=== PATIENT | female | born 1965 ===

== ENCOUNTER 2017-02-11 20:14 | Emergency (ER) | payer BC ==
[2017-02-11 22:39] VITALS: BP 138/81
[2017-02-11] MEDS ORDERED: Tetan/Diph/Pertus SYR(Tdap)* 0.5 ML SYR(BOOSTRIX) use SYR IM ONE (22:41)
[2017-02-11] MEDS ORDERED: Lidocaine 1% INJ* 10 MG/ML 30 ML SDV INJ ONE (22:47)
[2017-02-11] MEDS ORDERED: Lidocaine 1%* 5 ML VIAL ONE (22:49)
--- NOTE | 2017-02-11 23:26 | ED ---
Laceration/Wound HPI - HPI Summary HPI Summary: Cut left index finger with gardening tool jpta. Bleeding stopped with direct pressure. Not utd with tetanus. - History of Current Complaint Stated Complaint: FINGER LAC Time Seen by Provider: 02/11/17 22:38 Hx Obtained From: Patient Mechanism of Injury: Sharp/Blunt Trauma Onset/Duration: Still Present Alleviating: Compression Pain Intensity: 0 - Allergy/Home Medications Allergies/Adverse Reactions: Allergies Allergy/AdvReac Type Severity Reaction Status Date / Time No Known Allergies Allergy Verified 02/11/17 20:30 PMH/Surg Hx/FS Hx/Imm Hx Previously Healthy: Yes Infectious Disease History: No Infectious Disease History: Denies: Traveled Outside the [place] in Last 30 Days - Social History Alcohol Use: Occasionally Substance Use Type: Reports: None Smoking Status (MU): Never Smoked Tobacco Review of Systems Constitutional: Negative Eyes: Negative ENT: Negative Cardiovascular: Negative Respiratory: Negative Gastrointestinal: Negative Genitourinary: Negative Musculoskeletal: Other - left index finger from, patient denies weakness Skin: Other - leceration left index finger Neurological: Negative Negative: Weakness, Paresthesia, Numbness Psychological: Normal All Other Systems Reviewed And Are Negative: Yes Physical Exam Triage Information Reviewed: Yes Vital Signs On Initial Exam: Initial Vitals Temp Pulse Resp BP Pulse Ox 98.5 F 74 18 151/93 98 02/11/17 20:24 02/11/17 20:24 02/11/17 20:24 02/11/17 20:24 02/11/17 20:24 Vital Signs Reviewed: Yes Appearance: Positive: Well-Appearing Skin: Positive: Other - left index finger 2.5cm sc laceration. clotted blood present. Eyes: Positive: Normal, EOMI, FAHEEM Neck: Positive: Supple Respiratory/Lung Sounds: Positive: Clear to Auscultation Cardiovascular: Positive: RRR Musculoskeletal: Positive: Strength/ROM Intact Neurological: Positive: Normal, Sensory/Motor Intact Psychiatric: Positive: Normal Procedures - Laceration/Wound Repair 1 Location: upper extremity, Other - left index finger Description: Linear Anesthesia: Local, 1.0%, Lido Length, Depth and Shape: 2.5cm sc linear Betadine Prep?: No - cleaned with hibiclens Laceration/Wound Explored: clean Closure: Single Layer - # 10 sutures 5-0 prolene Suture Type: Prolene Number of Sutures: 10 Layer Closure?: No Sterile Dressing Applied?: Yes Diagnostics - Vital Signs Vital Signs Temp Pulse Resp BP Pulse Ox 02/11/17 22:34 98.3 F 96 20 138/81 99 02/11/17 20:24 98.5 F 74 18 151/93 98 - Laboratory Lab Statement: Any lab studies that have been ordered have been reviewed, and results considered in the medical decision making process. Laceration Repair Course/Dx - Course Course Of Treatment: Tdap given in ed. Keflex 500mg po tid x 7 days. No evidence of tendon involement seen. Patient told to look for tendon injury sx and to see a hand specialist if finger does not have full recovery. - Clinical Impression Provider Diagnoses: Laceration of left index finger Discharge - Discharge Plan Condition: Stable Disposition: HOME Prescriptions: Cephalexin CAP* [Keflex CAP*] 500 mg PO TID #20 cap Patient Education Materials: Care For Your Stitches (ED), Finger Laceration (ED ) Referrals: Joshua Myles MD [Primary Care Provider] - Additional Instructions: FOLLOW UP WITH YOUR DOCTOR. SUTURES OUT IN 8-10 DAYS. YOU RECEIVED YOUR Tdap (TETANUS/DIPTHERIA) IMMUNIZATION IN THE EMERGENCY DEPARTMENT. IF YOUR FINGER FEELS WEAK, THERE MAY BE TENDON DAMAGE AND YOU WILL NEED TO FOLLOW UP WITH A HAND SPECIALIST. RETURN TO THE EMERGENCY DEPARTMENT FOR ANY WORSENING OF YOUR CONDITION; INFECTION, YOUR FINGER IS WEAK OR NUMB OR QUESTIONS OR CONCERNS.
[2017-02-11] MEDS ORDERED: Cephalexin CAP* 500 MG PO ONE ×2 (23:27)
== END 2017-02-11 23:43 | disposition home or self-care (01) ==
LOC: ED 20:14
DX: S61.211A Laceration without foreign body of left index finger without damage to nail, initial encounter (principal); W26.9XXA Contact with unspecified sharp object(s), initial encounter; Y93.89 Activity, other specified; Y92.89 Other specified places as the place of occurrence of the external cause
CPT/HCPCS: 12002; 90715; 99282; A9270-GY